=== PATIENT | male | born 1940 | race Caucasian/White ===

== ENCOUNTER → 2016-07-20 | Outpatient (CLI) | payer MEDICARE, OTHER ==
[~2016-07-20] MED LIST: ALPR0.5T PO; ASPI-498 PO; ATOR10TA52 PO; CARV25TA PO; DOC100C PO; ESOM40CA39 PO; FURO40TA PO; IBU100LQ PO; NOR10T PO; POTA10TA51 PO; PRAS10TA6 PO; RANI300T3 PO; SPIR25TA89 PO; TAM04C PO; TRIA0.25 PO; VALS40TA2 PO; VEN75XRT PO
== END | disposition home or self-care (01) ==
LOC: Rad HDHVI 08:00
PROVIDERS: ATTEND Internal Medicine Cardiovascular Disease
DX: I11.0 Hypertensive heart disease with heart failure (principal); I25.10 Atherosclerotic heart disease of native coronary artery without angina pectoris; F41.8 Other specified anxiety disorders; E78.2 Mixed hyperlipidemia; R00.2 Palpitations; R07.89 Other chest pain
CPT/HCPCS: 93306; G0463

== ENCOUNTER → 2016-07-28 | Outpatient (CLI) | payer MEDICARE, OTHER ==
[~2016-07-28] VITALS: Ht 190.5 cm; Wt 104.3 kg
[~2016-07-28] MED LIST changes: +ADENOSINE 87 MG in GIVE UN-DILUTED 0 ML IV ONE; +ADENOSINE 90 MG/30 ML INJ IV ONE; +CYANOCOBALAMIN (B-12) 1000 MCG/1 ML VIAL IM ONE; +CYANOCOBALAMIN (B-12) 1000 MCG/1 ML VIAL ONE; +TESTOSTERONE CYPIONATE 100 MG/0.5ML 10mLMDV HEART CENTER IM ONE; +TESTOSTERONE CYPIONATE 200 MG/ML 1ML VIAL IM ONE
[2016-07-28 15:02] VITALS: BP 116/60
[2016-07-28 16:47] LABS: Calcium 8.5 mg/dL (8.5-10.1); Potassium 3.8 mmol/L (3.5-5.1)
[2016-07-28 16:51] LABS: Albumin 3.8 g/dL (3.4-5.0); BUN/Creatinine Ratio 24.1; Magnesium 2.2 mg/dL (1.6-2.6)
[2016-07-28 16:54] LABS: Bilirubin, Total 0.8 mg/dL (0.2-1.0); Total Protein 7.2 g/dL (6.4-8.2)
[2016-07-28 17:19] LABS: Basophils # (auto) 0 uL; Basophils % (auto) 0.5 % (0.0-2.0); Eosinophils # (auto) 0.2 uL; Eosinophils % (auto) 2.4 % (0.0-7.0); Hematocrit 41.4 % (41.0-53.0); Hemoglobin 13.6 g/dL (13.5-17.5); Lymphocytes # (auto) 1.9 uL; Lymphocytes % (auto) 24.9 % (10.0-50.0); Mean Corpuscular Hemoglobin 32.1 pg (28.0-32.0); Mean Corpuscular Hgb Conc. 32.8 g/dL (32.0-36.0); Mean Corpuscular Volume 97.8 fL (80.0-100.0); Mean Platelet Volume 9.6 fL (7.4-10.4); Monocytes # (auto) 0.5 uL; Monocytes % (auto) 6.3 % (0.0-12.0); Neutrophils # (auto) 5.1 uL; Neutrophils % (auto) 65.9 % (37.0-80.0); Platelet Count (auto) 190 10^3/uL (140-450); Red Cell Distribution Width 13.4 % (11.6-16.0); White Blood Cell 7.7 10^3/uL (4.4-10.8)
== END | disposition home or self-care (01) ==
LOC: Rad HDHVI 08:19
PROVIDERS: ATTEND Internal Medicine Cardiovascular Disease
DX: I10 Essential (primary) hypertension (principal); E11.9 Type 2 diabetes mellitus without complications; E83.40 Disorders of magnesium metabolism, unspecified; D64.9 Anemia, unspecified; E55.9 Vitamin D deficiency, unspecified
CPT/HCPCS: 36415; 78452; 80053; 82306; 83036; 83735; 85025; 93005; 93701; 94620; 96372; 96374; 96375; G0463; J0153

== ENCOUNTER 2016-08-13 11:28 | Emergency (ER) | payer MEDICARE, OTHER ==
[~2016-08-13] VITALS: Ht 190.5 cm; Wt 104.3 kg
[~2016-08-13 11:28] MED LIST changes: -ADENOSINE 87 MG in GIVE UN-DILUTED 0 ML IV ONE; -ADENOSINE 90 MG/30 ML INJ IV ONE; -CYANOCOBALAMIN (B-12) 1000 MCG/1 ML VIAL IM ONE; -CYANOCOBALAMIN (B-12) 1000 MCG/1 ML VIAL ONE; -TESTOSTERONE CYPIONATE 100 MG/0.5ML 10mLMDV HEART CENTER IM ONE; -TESTOSTERONE CYPIONATE 200 MG/ML 1ML VIAL IM ONE
[2016-08-13] MEDS ORDERED: SODIUM CHLORIDE 0.9% 500 ML IVB ONE (11:40)
[2016-08-13 12:27] LABS: Basophils # (auto) 0 uL; Basophils % (auto) 0.2 % (0.0-2.0); Eosinophils # (auto) 0 uL; Eosinophils % (auto) 0.7 % (0.0-7.0); Hemoglobin 12.1 g/dL (13.5-17.5); Lymphocytes % (auto) 20.4 % (10.0-50.0); Mean Corpuscular Hemoglobin 31.5 pg (28.0-32.0); Mean Corpuscular Volume 98.4 fL (80.0-100.0); Mean Platelet Volume 9.1 fL (7.4-10.4); Monocytes # (auto) 0.5 uL; Monocytes % (auto) 10.4 % (0.0-12.0); Neutrophils # (auto) 3.4 uL; Neutrophils % (auto) 68.3 % (37.0-80.0); Platelet Count (auto) 138 10^3/uL (140-450); Red Cell Distribution Width 14.1 % (11.6-16.0)
[2016-08-13 12:38] LABS: INR 1.07 (0.9-1.15); Partial Thromboplastin Time 29.2 sec (22.64-33.71)
[2016-08-13 12:49] LABS: Albumin 3.5 g/dL (3.4-5.0); BUN/Creatinine Ratio 20.2; Bilirubin, Total 0.6 mg/dL (0.2-1.0); Calcium 8.3 mg/dL (8.5-10.1); Potassium 4.2 mmol/L (3.5-5.1); Total Protein 6.6 g/dL (6.4-8.2)
[2016-08-13 13:37] LABS: B-Type Natriuretic Peptide 518.85 pg/mL (0-100); Temperature: 23.1 C (20.0-25.0)
[2016-08-13 13:40] LABS: Urine Bilirubin Negative (Negative); Urine Blood Negative /uL (Negative); Urine Color Yellow (Yellow); Urine Glucose Normal (Normal); Urine Hyaline Cast MANY /lpf (0 - 2); Urine Ketone Negative (Negative); Urine Nitrite Negative (Negative); Urine RBC 1 /hpf (0 - 3); Urine Squamous Epithelial Cell FEW /hpf (<5); Urine Urobilinogen Normal (Negative)
[2016-08-13 14:00] VITALS: BP 108/86
[2016-08-13] MEDS ORDERED: cefTRIAXone 1GM/50ML D5W 50 ML IV ONE (14:15)
== END 2016-08-13 17:05 | disposition home or self-care (01) ==
LOC: ER 11:30
DX: J18.9 Pneumonia, unspecified organism (principal); I25.2 Old myocardial infarction; I25.810 Atherosclerosis of coronary artery bypass graft(s) without angina pectoris; Z87.891 Personal history of nicotine dependence; D64.9 Anemia, unspecified; I11.0 Hypertensive heart disease with heart failure; I50.42 Chronic combined systolic (congestive) and diastolic (congestive) heart failure; Z95.5 Presence of coronary angioplasty implant and graft
CPT/HCPCS: 36415; 71020; 80053; 81001; 83605; 83735; 83880; 84443; 84484; 85025; 85610; 85730; 87040; 93005; 94761; 96361; 96365; 99285; J0696; J7040

== ENCOUNTER → 2016-08-31 | Outpatient (CLI) | payer MEDICARE, OTHER ==
[~2016-08-31] MED LIST changes: +CYANOCOBALAMIN (B-12) 1000 MCG/1 ML VIAL IM ONE; +CYANOCOBALAMIN (B-12) 1000 MCG/1 ML VIAL ONE
[2016-08-31 14:35] VITALS: BP 114/50
[2016-08-31 15:00] VITALS: BP 110/52
== END | disposition home or self-care (01) ==
LOC: CHF HDHVI 14:41
PROVIDERS: ATTEND Internal Medicine Cardiovascular Disease
DX: I10 Essential (primary) hypertension (principal); D64.9 Anemia, unspecified; F20.9 Schizophrenia, unspecified
CPT/HCPCS: 96372; G0463; J3420

== ENCOUNTER → 2016-09-29 | Outpatient (CLI) | payer MEDICARE, OTHER ==
[~2016-09-29] VITALS: Ht 30.5 cm; Wt 0.5 kg
[~2016-09-29] MED LIST changes: +TESTOSTERONE CYPIONATE 100 MG/0.5ML 10mLMDV HEART CENTER IM ONE; +TESTOSTERONE CYPIONATE 200 MG/ML 1ML VIAL IM ONE
[2016-09-29 12:40] VITALS: BP 111/56
[2016-09-29 13:55] VITALS: BP 111/60
== END ==
LOC: CHF HDHVI 12:50
PROVIDERS: ATTEND Internal Medicine Cardiovascular Disease
DX: I11.0 Hypertensive heart disease with heart failure (principal); I50.9 Heart failure, unspecified; I25.10 Atherosclerotic heart disease of native coronary artery without angina pectoris; D64.9 Anemia, unspecified; E11.9 Type 2 diabetes mellitus without complications; Z95.5 Presence of coronary angioplasty implant and graft; Z87.891 Personal history of nicotine dependence; E29.1 Testicular hypofunction
CPT/HCPCS: 93701; 94620; 96372; G0463; J1071; J3420

== ENCOUNTER → 2016-10-05 | Outpatient (CLI) | payer MEDICARE, OTHER ==
[~2016-10-05] MED LIST changes: -CYANOCOBALAMIN (B-12) 1000 MCG/1 ML VIAL IM ONE; -CYANOCOBALAMIN (B-12) 1000 MCG/1 ML VIAL ONE; -TESTOSTERONE CYPIONATE 100 MG/0.5ML 10mLMDV HEART CENTER IM ONE; -TESTOSTERONE CYPIONATE 200 MG/ML 1ML VIAL IM ONE
== END | disposition home or self-care (01) ==
LOC: Rad HDHVI 10:33
PROVIDERS: ATTEND Internal Medicine Cardiovascular Disease
DX: M24.152 Other articular cartilage disorders, left hip (principal); M51.37 Other intervertebral disc degeneration, lumbosacral region
CPT/HCPCS: 72110

== ENCOUNTER → 2016-10-18 | Outpatient (CLI) | payer MEDICARE, OTHER | END | disposition home or self-care (01) | LOC: HDHVI->DVH 08:41 → EDSTATUS 08:41 | PROVIDERS: ATTEND Internal Medicine Cardiovascular Disease | DX: I73.9 Peripheral vascular disease, unspecified (principal); M48.06 Spinal stenosis, lumbar region | CPT/HCPCS: 93926 ==

== ENCOUNTER → 2016-10-25 | Outpatient (CLI) | payer MEDICARE, OTHER ==
[~2016-10-25] MED LIST changes: +CYANOCOBALAMIN (B-12) 1000 MCG/1 ML VIAL IM ONE; +CYANOCOBALAMIN (B-12) 1000 MCG/1 ML VIAL ONE; +TESTOSTERONE CYPIONATE 200 MG/ML 1ML VIAL IM ONE
[2016-10-25 14:10] VITALS: BP 95/53
[2016-10-25 15:15] VITALS: BP 117/61
[2016-10-25 16:29] LABS: BUN/Creatinine Ratio 23.9; Calcium 9.1 mg/dL (8.5-10.1); Magnesium 2.5 mg/dL (1.6-2.6); Potassium 3.9 mmol/L (3.5-5.1)
[2016-10-25 16:30] LABS: Basophils # (auto) 0 uL; Basophils % (auto) 0.4 % (0.0-2.0); Eosinophils # (auto) 0.3 uL; Eosinophils % (auto) 4.4 % (0.0-7.0); Hematocrit 41.3 % (41.0-53.0); Hemoglobin 13.9 g/dL (13.5-17.5); Lymphocytes # (auto) 1.7 uL; Lymphocytes % (auto) 24.4 % (10.0-50.0); Mean Corpuscular Hemoglobin 33.3 pg (28.0-32.0); Mean Corpuscular Hgb Conc. 33.6 g/dL (32.0-36.0); Mean Corpuscular Volume 99.2 fL (80.0-100.0); Mean Platelet Volume 9.6 fL (7.4-10.4); Monocytes # (auto) 0.5 uL; Neutrophils # (auto) 4.5 uL; Neutrophils % (auto) 63.8 % (37.0-80.0); Platelet Count (auto) 191 10^3/uL (140-450); Red Cell Distribution Width 14.6 % (11.6-16.0)
== END | disposition home or self-care (01) ==
LOC: CHF HDHVI 14:12
PROVIDERS: ATTEND Internal Medicine Cardiovascular Disease
DX: D64.9 Anemia, unspecified (principal); I10 Essential (primary) hypertension; E11.9 Type 2 diabetes mellitus without complications; E55.9 Vitamin D deficiency, unspecified; E83.40 Disorders of magnesium metabolism, unspecified
CPT/HCPCS: 36415; 80048; 82306; 83036; 83735; 85025; 96372; G0463; J1071

== ENCOUNTER → 2016-11-21 | Outpatient (CLI) | payer MEDICARE, OTHER ==
[2016-11-21 09:45] VITALS: BP 105/51
[2016-11-21 10:45] VITALS: BP 93/51
== END | disposition home or self-care (01) ==
LOC: Rad HDHVI 09:49
PROVIDERS: ATTEND Internal Medicine Cardiovascular Disease
DX: I50.9 Heart failure, unspecified (principal); I27.2 Other secondary pulmonary hypertension; D64.9 Anemia, unspecified; E29.1 Testicular hypofunction
CPT/HCPCS: 71020; 93701; 96372; G0463; J1071; J3420

== ENCOUNTER → 2016-12-21 | Outpatient (CLI) | payer MEDICARE, OTHER ==
[~2016-12-21] MED LIST changes: -CYANOCOBALAMIN (B-12) 1000 MCG/1 ML VIAL IM ONE; -CYANOCOBALAMIN (B-12) 1000 MCG/1 ML VIAL ONE; -TESTOSTERONE CYPIONATE 200 MG/ML 1ML VIAL IM ONE
[2016-12-21 17:04] LABS: Potassium 4.7 mmol/L (3.5-5.1)
[2016-12-21 18:29] LABS: B-Type Natriuretic Peptide 180.64 pg/mL (0-100)
[2016-12-21 18:30] LABS: Temperature: 24.3 C (20.0-25.0)
== END | disposition home or self-care (01) ==
LOC: Rad HDHVI 12:48
PROVIDERS: ATTEND Internal Medicine Cardiovascular Disease
DX: I11.0 Hypertensive heart disease with heart failure (principal); I50.23 Acute on chronic systolic (congestive) heart failure; I25.5 Ischemic cardiomyopathy
CPT/HCPCS: 36415; 80048; 83880; 93306

== ENCOUNTER → 2016-12-29 | Outpatient (CLI) | payer MEDICARE, OTHER ==
[~2016-12-29] VITALS: Ht 30.5 cm; Wt 0.5 kg
[~2016-12-29] MED LIST changes: +CYANOCOBALAMIN (B-12) 1000 MCG/1 ML VIAL IM ONE; +CYANOCOBALAMIN (B-12) 1000 MCG/1 ML VIAL ONE; +TESTOSTERONE CYPIONATE 200 MG/ML 1ML VIAL IM ONE
[2016-12-29 11:35] VITALS: BP 101/56
[2016-12-29 12:00] VITALS: BP 102/53
== END | disposition home or self-care (01) ==
LOC: CHF HDHVI 11:42
PROVIDERS: ATTEND Internal Medicine Cardiovascular Disease
DX: I50.9 Heart failure, unspecified (principal); D64.9 Anemia, unspecified; E29.1 Testicular hypofunction
CPT/HCPCS: 96372; G0463; J1071; J3420

== ENCOUNTER → 2017-01-27 | Outpatient (CLI) | payer MEDICARE, OTHER ==
[2017-01-27 11:40] VITALS: BP 107/61
[2017-01-27 12:40] LABS: Basophils # (auto) 0 uL; Basophils % (auto) 0.5 % (0.0-2.0); CONDITION Y; Eosinophils # (auto) 0.2 uL; Eosinophils % (auto) 3.1 % (0.0-7.0); Hematocrit 40.4 % (41.0-53.0); Hemoglobin 13.7 g/dL (13.5-17.5); Lymphocytes # (auto) 1.2 uL; Mean Corpuscular Hemoglobin 33.6 pg (28.0-32.0); Mean Corpuscular Hgb Conc. 33.8 g/dL (32.0-36.0); Mean Corpuscular Volume 99.3 fL (80.0-100.0); Mean Platelet Volume 9.9 fL (7.4-10.4); Monocytes # (auto) 0.3 uL; Monocytes % (auto) 6.1 % (0.0-12.0); Neutrophils # (auto) 3.6 uL; Neutrophils % (auto) 67.3 % (37.0-80.0); Platelet Count (auto) 182 10^3/uL (140-450); White Blood Cell 5.3 10^3/uL (4.4-10.8)
[2017-01-27 13:09] LABS: BUN/Creatinine Ratio 22.3; Calcium 8.9 mg/dL (8.5-10.1); Magnesium 2.3 mg/dL (1.6-2.6); Potassium 4.5 mmol/L (3.5-5.1)
== END | disposition home or self-care (01) ==
LOC: CHF HDHVI 10:47
PROVIDERS: ATTEND Internal Medicine Cardiovascular Disease
DX: I11.0 Hypertensive heart disease with heart failure (principal); I50.9 Heart failure, unspecified; E83.42 Hypomagnesemia; R53.81 Other malaise; R94.2 Abnormal results of pulmonary function studies; E55.9 Vitamin D deficiency, unspecified; D64.9 Anemia, unspecified; Z95.5 Presence of coronary angioplasty implant and graft
CPT/HCPCS: 36415; 80048; 82306; 83735; 84403; 85025; 93701; 94620; 96372; G0463; J1071; J3420

== ENCOUNTER → 2017-02-10 | Outpatient (CLI) | payer MEDICARE, OTHER ==
[~2017-02-10] MED LIST changes: +BUMETANIDE (0.25MG/ML) 4 ML VIAL IV ONE; +BUMETANIDE (0.25MG/ML) 4 ML VIAL ONE; +METOLAZONE 5 MG TAB ONE; +METOLAZONE 5 MG TAB PO ONE; +POTASSIUM CHL 20 Meq TABLET PO ONE
[2017-02-10 11:30] VITALS: BP 107/52
[2017-02-10 17:01] LABS: Basophils # (auto) 0 uL; Basophils % (auto) 0.5 % (0.0-2.0); CONDITION Y; Eosinophils # (auto) 0.1 uL; Eosinophils % (auto) 1.4 % (0.0-7.0); Hematocrit 40.3 % (41.0-53.0); Hemoglobin 13.8 g/dL (13.5-17.5); Lymphocytes % (auto) 14.5 % (10.0-50.0); Mean Corpuscular Hemoglobin 33.9 pg (28.0-32.0); Mean Corpuscular Hgb Conc. 34.1 g/dL (32.0-36.0); Mean Corpuscular Volume 99.3 fL (80.0-100.0); Monocytes # (auto) 0.4 uL; Monocytes % (auto) 6.4 % (0.0-12.0); Neutrophils # (auto) 5.3 uL; Neutrophils % (auto) 77.2 % (37.0-80.0); Platelet Count (auto) 178 10^3/uL (140-450); Red Cell Distribution Width 14.6 % (11.6-16.0); White Blood Cell 6.9 10^3/uL (4.4-10.8)
[2017-02-10 17:12] LABS: Calcium 8.9 mg/dL (8.5-10.1); Potassium 4.7 mmol/L (3.5-5.1)
[2017-02-10 17:22] LABS: BUN/Creatinine Ratio 21.8
== END | disposition home or self-care (01) ==
LOC: CHF HDHVI 10:14
PROVIDERS: ATTEND Internal Medicine Cardiovascular Disease
DX: I11.0 Hypertensive heart disease with heart failure (principal); I50.9 Heart failure, unspecified; E11.9 Type 2 diabetes mellitus without complications; D64.9 Anemia, unspecified; E29.1 Testicular hypofunction
CPT/HCPCS: 36415; 80048; 82565; 83036; 85025; 96374; G0463; J1071; J3420

== ENCOUNTER → 2017-03-01 | Outpatient (CLI) | payer MEDICARE, OTHER ==
[~2017-03-01] MED LIST changes: -BUMETANIDE (0.25MG/ML) 4 ML VIAL IV ONE; -BUMETANIDE (0.25MG/ML) 4 ML VIAL ONE; -METOLAZONE 5 MG TAB ONE; -METOLAZONE 5 MG TAB PO ONE; -POTASSIUM CHL 20 Meq TABLET PO ONE
[2017-03-01 10:20] VITALS: BP 97/51
[2017-03-01 11:20] VITALS: BP 100/50
== END | disposition home or self-care (01) ==
LOC: CHF HDHVI 10:31
PROVIDERS: ATTEND Internal Medicine Cardiovascular Disease
DX: I50.9 Heart failure, unspecified (principal); E29.1 Testicular hypofunction
CPT/HCPCS: 93701; 96372; G0463; J1071; J3420

== ENCOUNTER → 2017-03-08 | Outpatient (CLI) | payer MEDICARE, OTHER ==
[~2017-03-08] MED LIST changes: -CYANOCOBALAMIN (B-12) 1000 MCG/1 ML VIAL IM ONE; -CYANOCOBALAMIN (B-12) 1000 MCG/1 ML VIAL ONE; -TESTOSTERONE CYPIONATE 200 MG/ML 1ML VIAL IM ONE
[2017-03-08 16:22] LABS: Basophils # (auto) 0 uL; Basophils % (auto) 0.5 % (0.0-2.0); CONDITION Y; Eosinophils # (auto) 0.1 uL; Eosinophils % (auto) 1.9 % (0.0-7.0); Hematocrit 40.3 % (41.0-53.0); Hemoglobin 13.4 g/dL (13.5-17.5); Lymphocytes # (auto) 1.4 uL; Lymphocytes % (auto) 20.3 % (10.0-50.0); Mean Corpuscular Hemoglobin 33.1 pg (28.0-32.0); Mean Corpuscular Hgb Conc. 33.3 g/dL (32.0-36.0); Mean Corpuscular Volume 99.5 fL (80.0-100.0); Mean Platelet Volume 9.8 fL (7.4-10.4); Monocytes # (auto) 0.5 uL; Monocytes % (auto) 7.3 % (0.0-12.0); Neutrophils # (auto) 4.7 uL; Platelet Count (auto) 186 10^3/uL (140-450); Red Cell Distribution Width 14.4 % (11.6-16.0); White Blood Cell 6.8 10^3/uL (4.4-10.8)
[2017-03-08 16:31] LABS: BUN/Creatinine Ratio 20.8; Calcium 8.7 mg/dL (8.5-10.1); Potassium 4.6 mmol/L (3.5-5.1)
[2017-03-08 16:47] LABS: B-Type Natriuretic Peptide 228.75 pg/mL (0-100)
[2017-03-08 17:04] LABS: Temperature: 22.2 C (20.0-25.0)
== END | disposition home or self-care (01) ==
LOC: LAB 14:37 → CHF HDHVI 14:37
PROVIDERS: ATTEND Internal Medicine Cardiovascular Disease
DX: I11.0 Hypertensive heart disease with heart failure (principal); I50.9 Heart failure, unspecified; D64.9 Anemia, unspecified
CPT/HCPCS: 36415; 80048; 83880; 85025

== ENCOUNTER → 2017-03-10 | Outpatient (CLI) | payer MEDICARE, OTHER ==
[~2017-03-10] MED LIST changes: +FUROSEMIDE 40 MG/4 ML VIAL IV ONE; +FUROSEMIDE 40 MG/4 ML VIAL ONE; +POTASSIUM CHL 20 Meq TABLET PO ONE
[2017-03-10 11:03] VITALS: BP 96/56
[2017-03-10 11:10] VITALS: BP 93/50
== END | disposition home or self-care (01) ==
LOC: CHF HDHVI 09:58
PROVIDERS: ATTEND Internal Medicine Cardiovascular Disease
DX: I25.10 Atherosclerotic heart disease of native coronary artery without angina pectoris (principal); I11.0 Hypertensive heart disease with heart failure; I50.9 Heart failure, unspecified
CPT/HCPCS: G0463; J1940

== ENCOUNTER → 2017-03-15 | Outpatient (CLI) | payer MEDICARE, OTHER ==
[~2017-03-15] MED LIST changes: -FUROSEMIDE 40 MG/4 ML VIAL IV ONE; -FUROSEMIDE 40 MG/4 ML VIAL ONE; +MAGNESIUM CITRATE SOLUTION 300 ML BTL ONE; +MAGNESIUM CITRATE SOLUTION 300 ML BTL PO ONE; -POTASSIUM CHL 20 Meq TABLET PO ONE
[2017-03-15 10:00] VITALS: BP 100/50
[2017-03-15 12:00] VITALS: BP 90/50
== END | disposition home or self-care (01) ==
LOC: CHF HDHVI 09:57
PROVIDERS: ATTEND Internal Medicine Cardiovascular Disease
DX: K21.9 Gastro-esophageal reflux disease without esophagitis (principal); I11.0 Hypertensive heart disease with heart failure; I50.9 Heart failure, unspecified; I25.10 Atherosclerotic heart disease of native coronary artery without angina pectoris; G89.29 Other chronic pain; E87.70 Fluid overload, unspecified; F41.9 Anxiety disorder, unspecified
CPT/HCPCS: G0463

== ENCOUNTER → 2017-03-21 | Outpatient (CLI) | payer MEDICARE, OTHER ==
[~2017-03-21] MED LIST changes: +IVAB1.7T PO; -MAGNESIUM CITRATE SOLUTION 300 ML BTL ONE; -MAGNESIUM CITRATE SOLUTION 300 ML BTL PO ONE; +METHPOW PO; +SACU1TAB PO
[2017-03-21 11:00] VITALS: BP_SYST 96; BP_SYST 98; BP_DIAS 53; BP_DIAS 63
[2017-03-21 11:30] VITALS: BP_SYST 83; BP_SYST 85; BP_DIAS 46; BP_DIAS 47
[2017-03-21 16:20] LABS: BUN/Creatinine Ratio 24.4; Calcium 8.9 mg/dL (8.5-10.1); Potassium 4.9 mmol/L (3.5-5.1)
[2017-03-21 16:23] LABS: Basophils # (auto) 0 uL; Basophils % (auto) 0.7 % (0.0-2.0); Eosinophils # (auto) 0.1 uL; Eosinophils % (auto) 1.8 % (0.0-7.0); Hematocrit 35.7 % (41.0-53.0); Hemoglobin 11.9 g/dL (13.5-17.5); Lymphocytes # (auto) 0.9 uL; Lymphocytes % (auto) 14.4 % (10.0-50.0); Mean Corpuscular Hemoglobin 33.7 pg (28.0-32.0); Mean Corpuscular Hgb Conc. 33.5 g/dL (32.0-36.0); Mean Corpuscular Volume 100.6 fL (80.0-100.0); Mean Platelet Volume 8.7 fL (6.9-10.8); Monocytes # (auto) 0.6 uL; Monocytes % (auto) 9.2 % (0.0-12.0); Neutrophils # (auto) 4.5 uL; Neutrophils % (auto) 73.9 % (37.0-80.0); Nucleated Red Blood Cells % 0.3 %; Platelet Count (auto) 158 10^3/uL (140-450); Red Cell Distribution Width 14.9 % (11.8-14.3); White Blood Cell 6.1 10^3/uL (4.4-10.8)
[2017-03-21 16:43] LABS: INR 1.47 (0.9-1.15); Partial Thromboplastin Time 40.3 sec (22.64-33.71); Prothrombin Time 16.1 sec (9.37-12.3)
== END | disposition home or self-care (01) ==
LOC: Rad HDHVI 11:09
PROVIDERS: ATTEND Internal Medicine Cardiovascular Disease
DX: Z01.818 Encounter for other preprocedural examination (principal); I10 Essential (primary) hypertension; D64.9 Anemia, unspecified; R79.1 Abnormal coagulation profile; J90 Pleural effusion, not elsewhere classified; I51.7 Cardiomegaly; J98.11 Atelectasis; I70.0 Atherosclerosis of aorta
CPT/HCPCS: 36415; 71020; 80048; 85025; 85610; 85730; 93005; G0463

== ENCOUNTER 2017-03-27 06:58 | Day surgery (SDC) | payer MEDICARE, OTHER ==
[~2017-03-27] VITALS: Ht 190.5 cm; Wt 104.3 kg
[~2017-03-27 06:58] MED LIST changes: -CARV25TA PO; -PRAS10TA6 PO; -VALS40TA2 PO
[2017-03-27] MEDS ORDERED: FLUMAZENIL 0.1 MG/ML INJ 10ML MDV IV ONE (08:15)
[2017-03-27] MEDS ORDERED: NALOXONE HCL 0.4 MG/ML VIAL IV ONE (08:15)
[2017-03-27] MEDS ORDERED: MIDAZOLAM HCL 1MG/1ML-2 ML VIAL IV ONE (08:15)
[2017-03-27] MEDS ORDERED: fentaNYL CITRATE 100 MCG/2 ML VL IM ONE (08:15)
[2017-03-27] MEDS ORDERED: AMIODARONE HCL 200 MG TAB PO ONE (09:30)
[2017-03-27] MEDS ORDERED: AMIO200T33 PO (11:55)
[2017-05-09] MEDS ORDERED: CLOP75TA28 PO (12:01)
[2017-05-09] MEDS ORDERED: ASCO500T11 PO (12:01)
[2017-05-09] MEDS ORDERED: MULT-928 PO (12:01)
== END 2017-03-27 12:20 | disposition home or self-care (01) ==
LOC: CATH 06:58
PROVIDERS: ATTEND Internal Medicine Cardiovascular Disease
DX: I48.91 Unspecified atrial fibrillation (principal); I25.10 Atherosclerotic heart disease of native coronary artery without angina pectoris; Z95.0 Presence of cardiac pacemaker; Z95.5 Presence of coronary angioplasty implant and graft; Z88.8 Allergy status to other drugs, medicaments and biological substances; I50.9 Heart failure, unspecified; Z95.1 Presence of aortocoronary bypass graft
CPT/HCPCS: 92960; J2250; J3010; J7030; 99152; 99153

== ENCOUNTER → 2017-03-30 | Outpatient (CLI) | payer MEDICARE, OTHER ==
[~2017-03-30] VITALS: Ht 165.1 cm; Wt 103.4 kg
[~2017-03-30] MED LIST changes: +AMIO200T33 PO; +CYANOCOBALAMIN (B-12) 1000 MCG/1 ML VIAL IM ONE; +CYANOCOBALAMIN (B-12) 1000 MCG/1 ML VIAL ONE; +MVI in SODIUM CHLORIDE 0.9% 1,010 ML ONE; +MVI in SODIUM CHLORIDE 0.9% 500 ML IVB ONE; +TESTOSTERONE CYPIONATE 200 MG/ML 1ML VIAL IM ONE
[2017-03-30 12:30] VITALS: BP 99/54
== END | disposition home or self-care (01) ==
LOC: CHF HDHVI 09:29
PROVIDERS: ATTEND Internal Medicine Cardiovascular Disease
DX: I50.9 Heart failure, unspecified (principal); I10 Essential (primary) hypertension; K21.9 Gastro-esophageal reflux disease without esophagitis; N40.0 Benign prostatic hyperplasia without lower urinary tract symptoms
CPT/HCPCS: 96365; 96366; 96372; G0463; J1071; J3411; J3420; J3475

== ENCOUNTER → 2017-04-11 | Outpatient (CLI) | payer MEDICARE, OTHER ==
[~2017-04-11] MED LIST changes: -CYANOCOBALAMIN (B-12) 1000 MCG/1 ML VIAL IM ONE; -CYANOCOBALAMIN (B-12) 1000 MCG/1 ML VIAL ONE; -MVI in SODIUM CHLORIDE 0.9% 1,010 ML ONE; -MVI in SODIUM CHLORIDE 0.9% 500 ML IVB ONE; -TESTOSTERONE CYPIONATE 200 MG/ML 1ML VIAL IM ONE
[2017-04-11 15:37] VITALS: BP 103/50
== END | disposition home or self-care (01) ==
LOC: CHF HDHVI 12:41
PROVIDERS: ATTEND Internal Medicine Cardiovascular Disease
DX: I48.0 Paroxysmal atrial fibrillation (principal); J84.10 Pulmonary fibrosis, unspecified
CPT/HCPCS: 93306; G0463

== ENCOUNTER → 2017-04-17 | Outpatient (CLI) | payer MEDICARE, OTHER ==
[~2017-04-17] MED LIST changes: +CYANOCOBALAMIN (B-12) 1000 MCG/1 ML VIAL IM ONE; +CYANOCOBALAMIN (B-12) 1000 MCG/1 ML VIAL ONE; +FUROSEMIDE 40 MG/4 ML VIAL IV ONE; +FUROSEMIDE 40 MG/4 ML VIAL ONE
[2017-04-17 12:15] VITALS: BP 91/42
[2017-04-17 17:09] LABS: BUN/Creatinine Ratio 24.3; Calcium 9.1 mg/dL (8.5-10.1); Magnesium 2.4 mg/dL (1.6-2.6); Potassium 4.8 mmol/L (3.5-5.1)
[2017-04-17 17:12] LABS: Basophils # (auto) 0 uL; Basophils % (auto) 0.7 % (0.0-2.0); Eosinophils # (auto) 0 uL; Eosinophils % (auto) 0.6 % (0.0-7.0); Hematocrit 33.3 % (41.0-53.0); Hemoglobin 10.9 g/dL (13.5-17.5); Lymphocytes # (auto) 0.8 uL; Lymphocytes % (auto) 12.8 % (10.0-50.0); Mean Corpuscular Hgb Conc. 32.7 g/dL (32.0-36.0); Mean Corpuscular Volume 97.8 fL (80.0-100.0); Mean Platelet Volume 8.3 fL (6.9-10.8); Monocytes # (auto) 0.4 uL; Monocytes % (auto) 7.1 % (0.0-12.0); Neutrophils % (auto) 78.8 % (37.0-80.0); Nucleated Red Blood Cells % 0.5 %; Platelet Count (auto) 215 10^3/uL (140-450); Red Cell Distribution Width 15.4 % (11.8-14.3); White Blood Cell 6.3 10^3/uL (4.4-10.8)
== END | disposition home or self-care (01) ==
LOC: CHF HDHVI 09:39
PROVIDERS: ATTEND Internal Medicine Cardiovascular Disease
DX: I10 Essential (primary) hypertension (principal); E83.42 Hypomagnesemia; D51.9 Vitamin B12 deficiency anemia, unspecified; D64.9 Anemia, unspecified
CPT/HCPCS: 36415; 80048; 82607; 83540; 83550; 83735; 85025; G0463; J1940; J3420

== ENCOUNTER → 2017-04-25 | Outpatient (CLI) | payer MEDICARE, OTHER ==
[~2017-04-25] MED LIST changes: -CYANOCOBALAMIN (B-12) 1000 MCG/1 ML VIAL IM ONE; -CYANOCOBALAMIN (B-12) 1000 MCG/1 ML VIAL ONE; -FUROSEMIDE 40 MG/4 ML VIAL IV ONE; -FUROSEMIDE 40 MG/4 ML VIAL ONE
[2017-04-25 13:20] VITALS: BP 97/49
[2017-04-25 14:00] VITALS: BP 97/50
== END | disposition home or self-care (01) ==
LOC: CHF HDHVI 13:19
PROVIDERS: ATTEND Internal Medicine Cardiovascular Disease
DX: I50.9 Heart failure, unspecified (principal); I25.10 Atherosclerotic heart disease of native coronary artery without angina pectoris; K21.9 Gastro-esophageal reflux disease without esophagitis; M10.9 Gout, unspecified; F41.9 Anxiety disorder, unspecified; E87.70 Fluid overload, unspecified
CPT/HCPCS: G0463

== ENCOUNTER → 2017-05-01 | Outpatient (CLI) | payer MEDICARE, OTHER ==
[~2017-05-01] MED LIST changes: +TESTOSTERONE CYPIONATE 200 MG/ML 1ML VIAL IM ONE
[2017-05-01 15:45] VITALS: BP 111/53
== END | disposition home or self-care (01) ==
LOC: CHF HDHVI 14:50
PROVIDERS: ATTEND Internal Medicine Cardiovascular Disease
DX: I11.0 Hypertensive heart disease with heart failure (principal); I50.9 Heart failure, unspecified; I25.10 Atherosclerotic heart disease of native coronary artery without angina pectoris; E29.1 Testicular hypofunction; E78.4 Other hyperlipidemia; R53.81 Other malaise
CPT/HCPCS: 36415; 84403; 96372; G0463; J1071

== ENCOUNTER → 2017-05-09 | Outpatient (CLI) | payer MEDICARE, OTHER ==
[~2017-05-09] MED LIST changes: +ASCO500T11 PO; +CLOP75TA28 PO; +IOHEXOL 350 MG/ML 100ML IJ ONE; +MULT-928 PO; -TESTOSTERONE CYPIONATE 200 MG/ML 1ML VIAL IM ONE
[2017-05-09 09:05] VITALS: BP 101/53
[2017-05-09 09:35] VITALS: BP 99/52
[2017-05-09 13:05] LABS: Basophils # (auto) 0 uL; Basophils % (auto) 0.9 % (0.0-2.0); Eosinophils # (auto) 0 uL; Eosinophils % (auto) 0.6 % (0.0-7.0); Hematocrit 34.5 % (41.0-53.0); Hemoglobin 11.4 g/dL (13.5-17.5); Lymphocytes # (auto) 1.2 uL; Mean Corpuscular Hemoglobin 31.4 pg (28.0-32.0); Mean Corpuscular Volume 95.3 fL (80.0-100.0); Mean Platelet Volume 8.9 fL (6.9-10.8); Monocytes # (auto) 0.5 uL; Monocytes % (auto) 9.2 % (0.0-12.0); Neutrophils # (auto) 3.6 uL; Neutrophils % (auto) 67.3 % (37.0-80.0); Nucleated Red Blood Cells % 0.2 %; Platelet Count (auto) 162 10^3/uL (140-450); Red Cell Distribution Width 16.2 % (11.8-14.3); White Blood Cell 5.3 10^3/uL (4.4-10.8)
[2017-05-09 13:13] LABS: INR 0.99 (0.9-1.15); Partial Thromboplastin Time 26.7 sec (22.64-33.71); Prothrombin Time 10.8 sec (9.37-12.3)
[2017-05-09 13:30] LABS: Calcium 9.3 mg/dL (8.5-10.1); Potassium 4.3 mmol/L (3.5-5.1)
== END | disposition home or self-care (01) ==
LOC: Rad HDHVI 09:03
PROVIDERS: ATTEND Internal Medicine Cardiovascular Disease
DX: I10 Essential (primary) hypertension (principal); D64.9 Anemia, unspecified; R79.1 Abnormal coagulation profile; Z01.812 Encounter for preprocedural laboratory examination
CPT/HCPCS: 36415; 71020; 80048; 85025; 85610; 85730; 93005; G0463

== ENCOUNTER 2017-05-11 08:53 | Inpatient (IN) | payer MEDICARE, OTHER ==
[~2017-05-11] VITALS: Ht 190.5 cm; Wt 101.4 kg
[~2017-05-11 08:53] MED LIST changes: -AMIO200T33 PO; -IOHEXOL 350 MG/ML 100ML IJ ONE
[2017-05-11] MEDS ORDERED: ceFAZolin 1GM/50ML 50 ML IV ONE (09:30)
[2017-05-11] MEDS ORDERED: VANCOMYCIN HCL 1000 MG VL IR ONE (09:30)
[2017-05-11] MEDS ORDERED: VANCOMYCIN 1GM/250ML 250 ML IV ONE (09:30)
[2017-05-11] MEDS ORDERED: LIDOCAINE 2%HCL (LOCAL ANESTH.) INJ 20ML MDV ONE (10:42)
[2017-05-11] MEDS ORDERED: fentaNYL CITRATE 100 MCG/2 ML VL ONE (10:53)
[2017-05-11] MEDS ORDERED: MIDAZOLAM HCL 1MG/1ML-2 ML VIAL ONE (10:53)
[2017-05-11] MEDS ORDERED: FUROSEMIDE 20 MG/2 ML VIAL ONE (11:35)
[2017-05-11] MEDS ORDERED: NITROGLYCERIN 0.4 MG SL TAB SL PRN (12:45)
[2017-05-11] MEDS ORDERED: MORPHINE SULFATE 10 MG/ML INJ 1ML SDV IV PRN (12:45)
[2017-05-11] MEDS ORDERED: ONDANSETRON HCL 4 MG/2 ML VIAL IV PRN (12:45)
[2017-05-11] MEDS ORDERED: ACETAMINOPHEN 325 MG TAB PO PRN (12:45)
[2017-05-11] MEDS ORDERED: HYDROcodone-ACET 5/325MG TAB PO PRN (12:45)
[2017-05-11] MEDS ORDERED: LORazepam 0.5 MG TAB PO PRN (12:45)
[2017-05-11 16:30] VITALS: BP 96/48
[2017-05-11] MEDS: VANCOMYCIN 1GM/250ML 250 ML IV SCH ×2 (21:28→22:03)
[2017-05-11 22:00] VITALS: BP 99/53
[2017-05-12 05:00] VITALS: BP 104/62
[2017-05-12] MEDS: VANCOMYCIN 1GM/250ML 250 ML IV SCH (10:01)
[2017-05-12 11:26] VITALS: BP 111/56
== END 2017-05-12 12:40 | disposition home or self-care (01) | DRG 226 ==
LOC: CATH 08:53 → TELE-WESTW 08:54
PROVIDERS: ADMIT Internal Medicine Cardiovascular Disease; ATTEND Internal Medicine Cardiovascular Disease
PROC: 0JH609Z Insertion of Cardiac Resynchronization Defibrillator Pulse Generator into Chest Subcutaneous Tissue and Fascia, Open Approach (ICD-10-PCS; principal; 2017-05-11)
PROC: 02HL3KZ Insertion of Defibrillator Lead into Left Ventricle, Percutaneous Approach (ICD-10-PCS; 2017-05-11)
PROC: 0JPT0PZ Removal of Cardiac Rhythm Related Device from Trunk Subcutaneous Tissue and Fascia, Open Approach (ICD-10-PCS; 2017-05-11)
DX: I25.5 Ischemic cardiomyopathy (principal); I50.23 Acute on chronic systolic (congestive) heart failure; I48.91 Unspecified atrial fibrillation; Z87.891 Personal history of nicotine dependence; I25.2 Old myocardial infarction; Z88.8 Allergy status to other drugs, medicaments and biological substances
CPT/HCPCS: 36415; 71010; 71020; 80048; 85025; 85610; 85730; 93005; 99152; 99153; G0463; J0690; J2250

== ENCOUNTER → 2017-05-17 | Outpatient (CLI) | payer MEDICARE, OTHER ==
[~2017-05-17] VITALS: Ht 30.5 cm; Wt 0.5 kg
[~2017-05-17] MED LIST changes: +CYANOCOBALAMIN (B-12) 1000 MCG/1 ML VIAL IM ONE; +CYANOCOBALAMIN (B-12) 1000 MCG/1 ML VIAL ONE
[2017-05-17 09:00] VITALS: BP 97/49
[2017-05-17 10:30] VITALS: BP 106/56
== END | disposition home or self-care (01) ==
LOC: CHF HDHVI 09:06
PROVIDERS: ATTEND Internal Medicine Cardiovascular Disease
DX: I50.9 Heart failure, unspecified (principal); I25.10 Atherosclerotic heart disease of native coronary artery without angina pectoris; D64.9 Anemia, unspecified; M85.9 Disorder of bone density and structure, unspecified
CPT/HCPCS: 77078; G0463; J3420

== ENCOUNTER → 2017-05-31 | Outpatient (CLI) | payer MEDICARE, OTHER ==
[~2017-05-31] VITALS: Ht 30.5 cm; Wt 99.5 kg
[~2017-05-31] MED LIST changes: -CYANOCOBALAMIN (B-12) 1000 MCG/1 ML VIAL IM ONE; -CYANOCOBALAMIN (B-12) 1000 MCG/1 ML VIAL ONE; +FUROSEMIDE 20 MG/2 ML VIAL ONE; +TESTOSTERONE CYPIONATE 200 MG/ML 1ML VIAL IM ONE
[2017-05-31 10:05] VITALS: BP 101/48
== END | disposition home or self-care (01) ==
LOC: CHF HDHVI 09:45
PROVIDERS: ATTEND Internal Medicine Cardiovascular Disease
DX: I50.9 Heart failure, unspecified (principal); E29.1 Testicular hypofunction; I27.21 Secondary pulmonary arterial hypertension
CPT/HCPCS: 96372; G0463; J1071

== ENCOUNTER → 2017-06-27 | Outpatient (CLI) | payer MEDICARE, OTHER ==
[~2017-06-27] MED LIST changes: +CYANOCOBALAMIN (B-12) 1000 MCG/1 ML VIAL IM ONE; +CYANOCOBALAMIN (B-12) 1000 MCG/1 ML VIAL ONE; -FUROSEMIDE 20 MG/2 ML VIAL ONE
[2017-06-27 10:40] VITALS: BP 101/53
[2017-06-27 11:40] VITALS: BP 101/53
[2017-06-27 12:14] LABS: Basophils # (auto) 0 uL; Basophils % (auto) 0.7 % (0.0-2.0); Eosinophils # (auto) 0.1 uL; Eosinophils % (auto) 1.6 % (0.0-7.0); Hemoglobin 12.4 g/dL (13.5-17.5); Lymphocytes # (auto) 1.5 uL; Lymphocytes % (auto) 23.6 % (10.0-50.0); Mean Corpuscular Hemoglobin 29.5 pg (28.0-32.0); Mean Corpuscular Hgb Conc. 32.7 g/dL (32.0-36.0); Mean Corpuscular Volume 90.1 fL (80.0-100.0); Mean Platelet Volume 8.7 fL (6.9-10.8); Monocytes # (auto) 0.4 uL; Monocytes % (auto) 6.3 % (0.0-12.0); Neutrophils # (auto) 4.2 uL; Neutrophils % (auto) 67.8 % (37.0-80.0); Platelet Count (auto) 178 10^3/uL (140-450); Red Cell Distribution Width 17.7 % (11.8-14.3); White Blood Cell 6.3 10^3/uL (4.4-10.8)
[2017-06-27 12:23] LABS: BUN/Creatinine Ratio 25.2; Magnesium 2.6 mg/dL (1.6-2.6); Potassium 4.9 mmol/L (3.5-5.1)
== END | disposition home or self-care (01) ==
LOC: CHF HDHVI 10:47
PROVIDERS: ATTEND Internal Medicine Cardiovascular Disease
DX: I11.0 Hypertensive heart disease with heart failure (principal); I50.9 Heart failure, unspecified; D64.9 Anemia, unspecified; R53.83 Other fatigue; E29.1 Testicular hypofunction; I48.91 Unspecified atrial fibrillation
CPT/HCPCS: 36415; 80048; 83735; 85025; 96372; G0463; J1071; J3420

== ENCOUNTER → 2017-07-28 | Outpatient (CLI) | payer MEDICARE, OTHER ==
[~2017-07-28] VITALS: Ht 30.5 cm; Wt 97.7 kg
[~2017-07-28] MED LIST changes: -IBU100LQ PO; +IBUP100S11 PO
[2017-07-28 10:50] VITALS: BP 92/49
[2017-07-28 12:30] VITALS: BP 106/51
[2017-07-28 16:36] LABS: BUN/Creatinine Ratio 25.2; Calcium 9.2 mg/dL (8.5-10.1); Potassium 4.7 mmol/L (3.5-5.1)
== END | disposition home or self-care (01) ==
LOC: CHF HDHVI 10:46
PROVIDERS: ATTEND Internal Medicine Cardiovascular Disease
DX: D51.9 Vitamin B12 deficiency anemia, unspecified (principal); I10 Essential (primary) hypertension; E29.1 Testicular hypofunction; D64.9 Anemia, unspecified; I27.21 Secondary pulmonary arterial hypertension
CPT/HCPCS: 36415; 80048; 82607; 84403; 93701; 96372; G0463; J1071; J3420

== ENCOUNTER → 2017-08-08 | Outpatient (CLI) | payer MEDICARE, OTHER ==
[~2017-08-08] MED LIST changes: -CYANOCOBALAMIN (B-12) 1000 MCG/1 ML VIAL IM ONE; -CYANOCOBALAMIN (B-12) 1000 MCG/1 ML VIAL ONE; +MAGNESIUM SULFATE 1GM/100ML 100 ML IV ONE; +MVI in SODIUM CHLORIDE 0.9% 1,010 ML ONE; +MVI in SODIUM CHLORIDE 0.9% 500 ML IVB ONE; -TESTOSTERONE CYPIONATE 200 MG/ML 1ML VIAL IM ONE
[2017-08-08 15:00] VITALS: BP 117/57
== END ==
LOC: CHF HDHVI 11:02
PROVIDERS: ATTEND Internal Medicine Cardiovascular Disease
DX: I48.91 Unspecified atrial fibrillation (principal); R06.02 Shortness of breath; R00.0 Tachycardia, unspecified; G47.00 Insomnia, unspecified; E86.0 Dehydration
CPT/HCPCS: 71046; 96365; 96366; 96368; G0463; J3411; J3475; 96367

== ENCOUNTER → 2017-08-29 | Outpatient (CLI) | payer MEDICARE, OTHER ==
[~2017-08-29] MED LIST changes: +CYANOCOBALAMIN (B-12) 1000 MCG/1 ML VIAL IM ONE; +CYANOCOBALAMIN (B-12) 1000 MCG/1 ML VIAL ONE; -MAGNESIUM SULFATE 1GM/100ML 100 ML IV ONE; -MVI in SODIUM CHLORIDE 0.9% 1,010 ML ONE; -MVI in SODIUM CHLORIDE 0.9% 500 ML IVB ONE; +TESTOSTERONE CYPIONATE 200 MG/ML 1ML VIAL IM ONE
[2017-08-29 14:55] VITALS: BP 92/50
== END | disposition home or self-care (01) ==
LOC: CHF HDHVI 14:20
PROVIDERS: ATTEND Internal Medicine Cardiovascular Disease
DX: I50.9 Heart failure, unspecified (principal); I25.10 Atherosclerotic heart disease of native coronary artery without angina pectoris; I48.91 Unspecified atrial fibrillation; E29.1 Testicular hypofunction; D64.9 Anemia, unspecified; R53.81 Other malaise; R53.83 Other fatigue
CPT/HCPCS: 93701; 96372; G0463; J1071; J3420

== ENCOUNTER → 2017-09-26 | Outpatient (CLI) | payer MEDICARE, OTHER ==
[2017-09-26 11:10] VITALS: BP 103/55
[2017-09-26 12:00] VITALS: BP 93/51
[2017-09-26 16:09] LABS: Albumin 3.3 g/dL (3.4-5.0); BUN/Creatinine Ratio 19.6; Calcium 8.7 mg/dL (8.5-10.1); Magnesium 2.3 mg/dL (1.6-2.6); Potassium 4.7 mmol/L (3.5-5.1)
[2017-09-26 16:13] LABS: Bilirubin, Total 0.6 mg/dL (0.2-1.0); Total Protein 6.6 g/dL (6.4-8.2)
[2017-09-26 16:49] LABS: Basophils # (auto) 0.1 uL; Basophils % (auto) 1.2 % (0.0-2.0); Eosinophils # (auto) 0.1 uL; Eosinophils % (auto) 1.7 % (0.0-7.0); Hematocrit 35.8 % (41.0-53.0); Hemoglobin 11.9 g/dL (13.5-17.5); Lymphocytes # (auto) 1.2 uL; Lymphocytes % (auto) 22.1 % (10.0-50.0); Mean Corpuscular Hemoglobin 30.7 pg (28.0-32.0); Mean Corpuscular Hgb Conc. 33.1 g/dL (32.0-36.0); Mean Corpuscular Volume 92.9 fL (80.0-100.0); Monocytes # (auto) 0.4 uL; Monocytes % (auto) 6.7 % (0.0-12.0); Neutrophils # (auto) 3.7 uL; Neutrophils % (auto) 68.3 % (37.0-80.0); Nucleated Red Blood Cells % 0.8 %; Platelet Count (auto) 180 10^3/uL (140-450); Red Blood Cells 3.86 10^6/uL (4.5-5.90); Red Cell Distribution Width 17.1 % (11.8-14.3); White Blood Cell 5.4 10^3/uL (4.4-10.8)
== END | disposition home or self-care (01) ==
LOC: CHF HDHVI 11:11
PROVIDERS: ATTEND Internal Medicine Cardiovascular Disease
DX: E55.9 Vitamin D deficiency, unspecified (principal); I10 Essential (primary) hypertension; D64.9 Anemia, unspecified; E11.9 Type 2 diabetes mellitus without complications; I48.91 Unspecified atrial fibrillation; R53.83 Other fatigue; E29.1 Testicular hypofunction; Z95.810 Presence of automatic (implantable) cardiac defibrillator
CPT/HCPCS: 36415; 80053; 82306; 83036; 83735; 85025; 93701; 96372; G0463; J1071; J3420

== ENCOUNTER → 2017-10-03 | Outpatient (CLI) | payer MEDICARE, OTHER ==
[~2017-10-03] MED LIST changes: -CYANOCOBALAMIN (B-12) 1000 MCG/1 ML VIAL IM ONE; -CYANOCOBALAMIN (B-12) 1000 MCG/1 ML VIAL ONE
[2017-10-03 11:44] VITALS: BP 101/52
[2017-10-03 11:50] VITALS: BP 102/53
== END | disposition home or self-care (01) ==
LOC: CHF HDHVI 11:26
PROVIDERS: ATTEND Internal Medicine Cardiovascular Disease
DX: E29.1 Testicular hypofunction (principal)
CPT/HCPCS: 96372; G0463; J1071

== ENCOUNTER → 2017-10-10 | Outpatient (CLI) | payer MEDICARE, OTHER ==
[2017-10-10 11:00] VITALS: BP 96/47
[2017-10-10 11:40] VITALS: BP 87/52
== END | disposition home or self-care (01) ==
LOC: CHF HDHVI 11:17
PROVIDERS: ATTEND Internal Medicine Cardiovascular Disease
DX: E29.1 Testicular hypofunction (principal); E55.9 Vitamin D deficiency, unspecified; I10 Essential (primary) hypertension; E11.9 Type 2 diabetes mellitus without complications; I48.91 Unspecified atrial fibrillation
CPT/HCPCS: 96372; G0463; J1071

== ENCOUNTER → 2017-10-17 | Outpatient (CLI) | payer MEDICARE, OTHER ==
[2017-10-17 11:50] VITALS: BP 102/53
[2017-10-17 12:00] VITALS: BP 101/43
== END | disposition home or self-care (01) ==
LOC: CHF HDHVI 11:50
PROVIDERS: ATTEND Internal Medicine Cardiovascular Disease
DX: E29.1 Testicular hypofunction (principal); I25.10 Atherosclerotic heart disease of native coronary artery without angina pectoris; I10 Essential (primary) hypertension; E11.9 Type 2 diabetes mellitus without complications
CPT/HCPCS: 96372; G0463; J1071

== ENCOUNTER → 2017-10-31 | Outpatient (CLI) | payer MEDICARE, OTHER ==
[~2017-10-31] MED LIST changes: +CYANOCOBALAMIN (B-12) 1000 MCG/1 ML VIAL IM ONE; +CYANOCOBALAMIN (B-12) 1000 MCG/1 ML VIAL ONE
[2017-10-31 13:50] VITALS: BP 91/39
[2017-10-31 14:57] VITALS: BP 91/43
== END | disposition home or self-care (01) ==
LOC: CHF HDHVI 14:00
PROVIDERS: ATTEND Internal Medicine Cardiovascular Disease
DX: E29.1 Testicular hypofunction (principal); I11.0 Hypertensive heart disease with heart failure; I50.23 Acute on chronic systolic (congestive) heart failure; E11.9 Type 2 diabetes mellitus without complications; I48.91 Unspecified atrial fibrillation; I25.10 Atherosclerotic heart disease of native coronary artery without angina pectoris; I25.2 Old myocardial infarction; J45.909 Unspecified asthma, uncomplicated; Z98.61 Coronary angioplasty status; Z95.810 Presence of automatic (implantable) cardiac defibrillator; Z79.01 Long term (current) use of anticoagulants
CPT/HCPCS: 93701; 96372; G0463; J1071; J3420

== ENCOUNTER → 2017-11-14 | Outpatient (CLI) | payer MEDICARE, OTHER ==
[~2017-11-14] MED LIST changes: -CYANOCOBALAMIN (B-12) 1000 MCG/1 ML VIAL IM ONE; -CYANOCOBALAMIN (B-12) 1000 MCG/1 ML VIAL ONE
[2017-11-14 11:30] VITALS: BP 93/47
[2017-11-14 11:41] VITALS: BP 98/49
== END | disposition home or self-care (01) ==
LOC: CHF HDHVI 11:30
PROVIDERS: ATTEND Internal Medicine Cardiovascular Disease
DX: E29.1 Testicular hypofunction (principal); I11.0 Hypertensive heart disease with heart failure; I50.9 Heart failure, unspecified; E11.9 Type 2 diabetes mellitus without complications; I25.10 Atherosclerotic heart disease of native coronary artery without angina pectoris; I48.91 Unspecified atrial fibrillation; Z95.810 Presence of automatic (implantable) cardiac defibrillator
CPT/HCPCS: 96372; G0463; J1071

== ENCOUNTER → 2017-11-28 | Outpatient (CLI) | payer MEDICARE, OTHER ==
[2017-11-28 11:45] VITALS: BP 100/52
[2017-11-28 11:50] VITALS: BP 103/47
[2017-11-28 16:18] LABS: BUN/Creatinine Ratio 22.2; Calcium 8.4 mg/dL (8.5-10.1); Magnesium 2.3 mg/dL (1.6-2.6); Potassium 4.4 mmol/L (3.5-5.1)
[2017-11-28 16:30] LABS: Basophils # (auto) 0 uL; Basophils % (auto) 0.8 % (0.0-2.0); Eosinophils # (auto) 0 uL; Eosinophils % (auto) 0.7 % (0.0-7.0); Hematocrit 33.7 % (41.0-53.0); Hemoglobin 10.9 g/dL (13.5-17.5); Lymphocytes # (auto) 1.3 uL; Lymphocytes % (auto) 22.1 % (10.0-50.0); Mean Corpuscular Hemoglobin 27.7 pg (28.0-32.0); Mean Corpuscular Hgb Conc. 32.2 g/dL (32.0-36.0); Monocytes # (auto) 0.5 uL; Monocytes % (auto) 8.1 % (0.0-12.0); Neutrophils # (auto) 4.1 uL; Neutrophils % (auto) 68.3 % (37.0-80.0); Nucleated Red Blood Cells % 0.4 %; Platelet Count (auto) 165 10^3/uL (140-450); Red Blood Cells 3.92 10^6/uL (4.5-5.90); Red Cell Distribution Width 17.5 % (11.8-14.3)
== END | disposition home or self-care (01) ==
LOC: CHF HDHVI 11:47
PROVIDERS: ATTEND Internal Medicine Cardiovascular Disease
DX: E29.1 Testicular hypofunction (principal); I11.0 Hypertensive heart disease with heart failure; I50.23 Acute on chronic systolic (congestive) heart failure; D64.9 Anemia, unspecified; I25.10 Atherosclerotic heart disease of native coronary artery without angina pectoris; E11.9 Type 2 diabetes mellitus without complications; I48.91 Unspecified atrial fibrillation; I25.2 Old myocardial infarction; J45.909 Unspecified asthma, uncomplicated; Z79.01 Long term (current) use of anticoagulants
CPT/HCPCS: 36415; 80048; 83735; 85025; 96372; G0463; J1071

== ENCOUNTER → 2017-12-12 | Outpatient (CLI) | payer MEDICARE, BC ==
[~2017-12-12] MED LIST changes: +CYANOCOBALAMIN (B-12) 1000 MCG/1 ML VIAL IM ONE; +CYANOCOBALAMIN (B-12) 1000 MCG/1 ML VIAL ONE
[2017-12-12 11:18] VITALS: BP 105/45
[2017-12-12 11:25] VITALS: BP 109/48
== END | disposition home or self-care (01) ==
LOC: CHF HDHVI 10:55
PROVIDERS: ATTEND Internal Medicine Cardiovascular Disease
DX: I11.0 Hypertensive heart disease with heart failure (principal); I50.23 Acute on chronic systolic (congestive) heart failure; R06.02 Shortness of breath; E11.9 Type 2 diabetes mellitus without complications; I25.10 Atherosclerotic heart disease of native coronary artery without angina pectoris; E29.1 Testicular hypofunction; J45.909 Unspecified asthma, uncomplicated; D64.9 Anemia, unspecified; Z79.01 Long term (current) use of anticoagulants; Z98.61 Coronary angioplasty status; Z95.810 Presence of automatic (implantable) cardiac defibrillator
CPT/HCPCS: 93701; 94618; 96372; G0463; J1071; J3420

== ENCOUNTER → 2017-12-26 | Outpatient (CLI) | payer MEDICARE, BC ==
[~2017-12-26] MED LIST changes: -CYANOCOBALAMIN (B-12) 1000 MCG/1 ML VIAL IM ONE; -CYANOCOBALAMIN (B-12) 1000 MCG/1 ML VIAL ONE; -TESTOSTERONE CYPIONATE 200 MG/ML 1ML VIAL IM ONE
[2017-12-26 14:30] VITALS: BP 101/53
[2017-12-26 16:09] LABS: Albumin 3.3 g/dL (3.4-5.0); BUN/Creatinine Ratio 27.6; Calcium 8.5 mg/dL (8.5-10.1); Potassium 4.6 mmol/L (3.5-5.1)
[2017-12-26 16:11] LABS: Bilirubin, Total 0.9 mg/dL (0.2-1.0); Total Protein 6.8 g/dL (6.4-8.2)
[2017-12-26 16:31] LABS: Basophils # (auto) 0.1 uL; Basophils % (auto) 0.8 % (0.0-2.0); Eosinophils # (auto) 0.1 uL; Eosinophils % (auto) 1.9 % (0.0-7.0); Hematocrit 31.2 % (41.0-53.0); Hemoglobin 10.3 g/dL (13.5-17.5); Lymphocytes # (auto) 1.1 uL; Lymphocytes % (auto) 17.3 % (10.0-50.0); Mean Corpuscular Volume 81.9 fL (80.0-100.0); Monocytes # (auto) 0.7 uL; Monocytes % (auto) 10.9 % (0.0-12.0); Neutrophils # (auto) 4.6 uL; Neutrophils % (auto) 69.1 % (37.0-80.0); Nucleated Red Blood Cells % 0.1 %; Platelet Count (auto) 196 10^3/uL (140-450); Red Blood Cells 3.81 10^6/uL (4.5-5.90); Red Cell Distribution Width 18.9 % (11.8-14.3); White Blood Cell 6.6 10^3/uL (4.4-10.8)
== END | disposition home or self-care (01) ==
LOC: CHF HDHVI 14:13
PROVIDERS: ATTEND Internal Medicine Cardiovascular Disease
DX: I11.0 Hypertensive heart disease with heart failure (principal); I50.23 Acute on chronic systolic (congestive) heart failure; I25.10 Atherosclerotic heart disease of native coronary artery without angina pectoris; E11.9 Type 2 diabetes mellitus without complications; D51.9 Vitamin B12 deficiency anemia, unspecified; D64.9 Anemia, unspecified; E29.1 Testicular hypofunction; E55.9 Vitamin D deficiency, unspecified
CPT/HCPCS: 36415; 80053; 82306; 82607; 83880; 84403; 85025; G0463

== ENCOUNTER → 2018-01-22 | Outpatient (CLI) | payer MEDICARE, BC ==
[~2018-01-22] VITALS: Ht 190.5 cm; Wt 94.3 kg
[~2018-01-22] MED LIST changes: +ADENOSINE 79 MG in GIVE UN-DILUTED 0 ML IV ONE; +ADENOSINE 90 MG/30 ML INJ IV ONE; +CHOL1TAB42 PO; +DIGO0.1262 PO; +MAGN400C2 PO; +METO5TAB56 PO; +NITR0.4S29 SL; +OMEGCAP PO; +RIVA10TA PO; +TORS1TAB10 PO; +[UNRECOGNIZED DRUG - CODE] PO
== END | disposition home or self-care (01) ==
LOC: CHF HDHVI 10:19
PROVIDERS: ATTEND Internal Medicine Cardiovascular Disease
DX: I25.5 Ischemic cardiomyopathy (principal); I11.0 Hypertensive heart disease with heart failure; I50.43 Acute on chronic combined systolic (congestive) and diastolic (congestive) heart failure; E78.2 Mixed hyperlipidemia; J96.90 Respiratory failure, unspecified, unspecified whether with hypoxia or hypercapnia; E11.9 Type 2 diabetes mellitus without complications
CPT/HCPCS: 78452; 93005; 96374; 96375; A9500; J0153

== ENCOUNTER → 2018-01-30 | Outpatient (CLI) | payer MEDICARE, BC ==
[~2018-01-30] MED LIST changes: -ADENOSINE 79 MG in GIVE UN-DILUTED 0 ML IV ONE; -ADENOSINE 90 MG/30 ML INJ IV ONE; +CYANOCOBALAMIN (B-12) 1000 MCG/1 ML VIAL IM ONE; +CYANOCOBALAMIN (B-12) 1000 MCG/1 ML VIAL ONE; +TESTOSTERONE CYPIONATE 200 MG/ML 1ML VIAL IM ONE
[2018-01-30 11:35] VITALS: BP 96/51
[2018-01-30 12:35] VITALS: BP 97/53
== END | disposition home or self-care (01) ==
LOC: CHF HDHVI 11:38
PROVIDERS: ATTEND Internal Medicine Cardiovascular Disease
DX: I48.0 Paroxysmal atrial fibrillation (principal); I25.10 Atherosclerotic heart disease of native coronary artery without angina pectoris; D51.9 Vitamin B12 deficiency anemia, unspecified; E29.1 Testicular hypofunction; I11.0 Hypertensive heart disease with heart failure; I50.43 Acute on chronic combined systolic (congestive) and diastolic (congestive) heart failure; E11.9 Type 2 diabetes mellitus without complications; F41.9 Anxiety disorder, unspecified; E55.9 Vitamin D deficiency, unspecified; J45.909 Unspecified asthma, uncomplicated; K21.9 Gastro-esophageal reflux disease without esophagitis; I25.2 Old myocardial infarction; Z79.01 Long term (current) use of anticoagulants; Z95.810 Presence of automatic (implantable) cardiac defibrillator
CPT/HCPCS: 93701; 96372; G0463; J1071; J3420

== ENCOUNTER → 2018-02-05 | Outpatient (CLI) | payer MEDICARE, BC ==
[~2018-02-05] MED LIST changes: -CYANOCOBALAMIN (B-12) 1000 MCG/1 ML VIAL IM ONE; -CYANOCOBALAMIN (B-12) 1000 MCG/1 ML VIAL ONE; +FUROSEMIDE 100 MG/10ML VIAL IV ONE; +FUROSEMIDE 40 MG/4 ML VIAL ONE; +POTASSIUM CHL 20 Meq TABLET PO ONE; -TESTOSTERONE CYPIONATE 200 MG/ML 1ML VIAL IM ONE
[2018-02-05 11:00] VITALS: BP 88/49
[2018-02-05 12:06] LABS: Basophils # (auto) 0 uL; Basophils % (auto) 0.5 % (0.0-2.0); Eosinophils # (auto) 0 uL; Eosinophils % (auto) 0.2 % (0.0-7.0); Hematocrit 29.7 % (41.0-53.0); Hemoglobin 9.6 g/dL (13.5-17.5); Lymphocytes # (auto) 0.6 uL; Lymphocytes % (auto) 7.2 % (10.0-50.0); Mean Corpuscular Hemoglobin 27.3 pg (28.0-32.0); Mean Corpuscular Hgb Conc. 32.4 g/dL (32.0-36.0); Mean Corpuscular Volume 84.3 fL (80.0-100.0); Monocytes # (auto) 0.7 uL; Neutrophils # (auto) 6.8 uL; Neutrophils % (auto) 83.1 % (37.0-80.0); Nucleated Red Blood Cells % 0.2 %; Platelet Count (auto) 144 10^3/uL (140-450); Red Blood Cells 3.52 10^6/uL (4.5-5.90); White Blood Cell 8.1 10^3/uL (4.4-10.8)
[2018-02-05 12:07] LABS: Red Cell Distribution Width 23.2 % (11.8-14.3)
[2018-02-05 12:13] LABS: BUN/Creatinine Ratio 23.2; Calcium 8.8 mg/dL (8.5-10.1); Potassium 4.4 mmol/L (3.5-5.1)
== END | disposition home or self-care (01) ==
LOC: CHF HDHVI 09:58
PROVIDERS: ATTEND Internal Medicine Cardiovascular Disease
DX: I11.0 Hypertensive heart disease with heart failure (principal); I50.43 Acute on chronic combined systolic (congestive) and diastolic (congestive) heart failure; D64.9 Anemia, unspecified; R06.02 Shortness of breath; I25.10 Atherosclerotic heart disease of native coronary artery without angina pectoris; F41.9 Anxiety disorder, unspecified; K21.9 Gastro-esophageal reflux disease without esophagitis; E78.2 Mixed hyperlipidemia; I25.2 Old myocardial infarction; J45.909 Unspecified asthma, uncomplicated; I48.0 Paroxysmal atrial fibrillation; E11.9 Type 2 diabetes mellitus without complications; Z79.01 Long term (current) use of anticoagulants; Z98.61 Coronary angioplasty status; Z95.810 Presence of automatic (implantable) cardiac defibrillator
CPT/HCPCS: 36415; 80048; 83880; 85025; 96374; G0463; J1940

== ENCOUNTER → 2018-02-07 | Outpatient (CLI) | payer MEDICARE, BC ==
[~2018-02-07] MED LIST changes: -FUROSEMIDE 100 MG/10ML VIAL IV ONE; -FUROSEMIDE 40 MG/4 ML VIAL ONE; +IOHEXOL 350 MG/ML 100ML IJ ONE; -POTASSIUM CHL 20 Meq TABLET PO ONE
[2018-02-07 12:00] VITALS: BP 93/49
[2018-02-07 12:45] VITALS: BP 96/51
== END | disposition home or self-care (01) ==
LOC: Rad HDHVI 11:25
PROVIDERS: ATTEND Internal Medicine Cardiovascular Disease
DX: T82.897A Other specified complication of cardiac prosthetic devices, implants and grafts, initial encounter (principal); J98.11 Atelectasis; I25.10 Atherosclerotic heart disease of native coronary artery without angina pectoris
CPT/HCPCS: 71275; 82565; G0463; Q9967

== ENCOUNTER → 2018-02-23 | Outpatient (CLI) | payer MEDICARE, BC ==
[~2018-02-23] MED LIST changes: +FUROSEMIDE 100 MG/10ML VIAL IV ONE; +FUROSEMIDE 40 MG/4 ML VIAL ONE; -IOHEXOL 350 MG/ML 100ML IJ ONE; +POTASSIUM CHL 20 Meq TABLET PO ONE
[2018-02-23 11:05] VITALS: BP 107/54
== END | disposition home or self-care (01) ==
LOC: CHF HDHVI 10:06
PROVIDERS: ATTEND Internal Medicine Cardiovascular Disease
DX: I11.0 Hypertensive heart disease with heart failure (principal); I50.43 Acute on chronic combined systolic (congestive) and diastolic (congestive) heart failure; I27.21 Secondary pulmonary arterial hypertension; D51.9 Vitamin B12 deficiency anemia, unspecified; E11.9 Type 2 diabetes mellitus without complications; I48.0 Paroxysmal atrial fibrillation; I25.10 Atherosclerotic heart disease of native coronary artery without angina pectoris; I25.2 Old myocardial infarction; J45.909 Unspecified asthma, uncomplicated; K21.9 Gastro-esophageal reflux disease without esophagitis; E78.2 Mixed hyperlipidemia; F41.9 Anxiety disorder, unspecified; Z79.01 Long term (current) use of anticoagulants; Z79.899 Other long term (current) drug therapy; Z95.810 Presence of automatic (implantable) cardiac defibrillator; Z98.61 Coronary angioplasty status
CPT/HCPCS: 96374; G0463; J1940

== ENCOUNTER → 2018-02-26 | Outpatient (CLI) | payer MEDICARE, BC ==
[~2018-02-26] MED LIST changes: +CYANOCOBALAMIN (B-12) 1000 MCG/1 ML VIAL IM ONE; +CYANOCOBALAMIN (B-12) 1000 MCG/1 ML VIAL ONE; -FUROSEMIDE 100 MG/10ML VIAL IV ONE; -FUROSEMIDE 40 MG/4 ML VIAL ONE; -POTASSIUM CHL 20 Meq TABLET PO ONE; +TESTOSTERONE CYPIONATE 200 MG/ML 1ML VIAL IM ONE
[2018-02-26 11:30] VITALS: BP 90/41
[2018-02-26 12:25] LABS: Basophils # (auto) 0.1 uL; Basophils % (auto) 1.1 % (0.0-2.0); Eosinophils # (auto) 0.1 uL; Eosinophils % (auto) 1.3 % (0.0-7.0); Hematocrit 28.3 % (41.0-53.0); Hemoglobin 9.2 g/dL (13.5-17.5); Lymphocytes # (auto) 0.9 uL; Lymphocytes % (auto) 14.9 % (10.0-50.0); Mean Corpuscular Hemoglobin 27.2 pg (28.0-32.0); Mean Corpuscular Hgb Conc. 32.3 g/dL (32.0-36.0); Mean Corpuscular Volume 84.2 fL (80.0-100.0); Monocytes # (auto) 0.5 uL; Monocytes % (auto) 8.5 % (0.0-12.0); Neutrophils # (auto) 4.7 uL; Neutrophils % (auto) 74.2 % (37.0-80.0); Nucleated Red Blood Cells % 0.1 %; Platelet Count (auto) 176 10^3/uL (140-450); Red Blood Cells 3.37 10^6/uL (4.5-5.90); White Blood Cell 6.3 10^3/uL (4.4-10.8)
[2018-02-26 12:30] LABS: Red Cell Distribution Width 21.7 % (11.8-14.3)
[2018-02-26 12:48] LABS: BUN/Creatinine Ratio 31.6; Calcium 8.8 mg/dL (8.5-10.1); Potassium 4.4 mmol/L (3.5-5.1)
== END | disposition home or self-care (01) ==
LOC: Rad HDHVI 09:00
PROVIDERS: ATTEND Internal Medicine Cardiovascular Disease
DX: E29.1 Testicular hypofunction (principal); R53.83 Other fatigue; N40.0 Benign prostatic hyperplasia without lower urinary tract symptoms; I25.10 Atherosclerotic heart disease of native coronary artery without angina pectoris; I11.0 Hypertensive heart disease with heart failure; I50.43 Acute on chronic combined systolic (congestive) and diastolic (congestive) heart failure; E11.9 Type 2 diabetes mellitus without complications; D51.9 Vitamin B12 deficiency anemia, unspecified; I25.2 Old myocardial infarction; I48.0 Paroxysmal atrial fibrillation; K21.9 Gastro-esophageal reflux disease without esophagitis; F41.9 Anxiety disorder, unspecified; Z79.01 Long term (current) use of anticoagulants; Z79.899 Other long term (current) drug therapy; Z95.810 Presence of automatic (implantable) cardiac defibrillator; Z98.61 Coronary angioplasty status
CPT/HCPCS: 36415; 71046; 80048; 82565; 83880; 85025; 93701; 96372; G0463; J1071; J3420

== ENCOUNTER → 2018-03-02 | Outpatient (CLI) | payer MEDICARE, BC ==
[~2018-03-02] MED LIST changes: -CYANOCOBALAMIN (B-12) 1000 MCG/1 ML VIAL IM ONE; -CYANOCOBALAMIN (B-12) 1000 MCG/1 ML VIAL ONE; -TESTOSTERONE CYPIONATE 200 MG/ML 1ML VIAL IM ONE
[2018-03-02 08:55] VITALS: BP 86/38
[2018-03-02 09:50] VITALS: BP 84/44
[2018-03-02 10:38] LABS: Magnesium 2.8 mg/dL (1.6-2.6); Potassium 4.5 mmol/L (3.5-5.1)
== END | disposition home or self-care (01) ==
LOC: CHF HDHVI 09:13
PROVIDERS: ATTEND Internal Medicine Cardiovascular Disease
DX: E83.40 Disorders of magnesium metabolism, unspecified (principal); R94.4 Abnormal results of kidney function studies; E87.6 Hypokalemia; I11.0 Hypertensive heart disease with heart failure; I50.9 Heart failure, unspecified; I25.10 Atherosclerotic heart disease of native coronary artery without angina pectoris; Z79.899 Other long term (current) drug therapy
CPT/HCPCS: 36415; 82565; 83735; 84132; 84520; G0463

== ENCOUNTER → 2018-03-08 | Outpatient (CLI) | payer MEDICARE, BC ==
[~2018-03-08] MED LIST changes: +ADENOSINE 90 MG/30 ML INJ IV ONE; +CYANOCOBALAMIN (B-12) 1000 MCG/1 ML VIAL IM ONE; +CYANOCOBALAMIN (B-12) 1000 MCG/1 ML VIAL ONE; +FURO20TA3 PO; +SPIR25TA8 PO; -SPIR25TA89 PO; -VEN75XRT PO; +VENL75CA3 PO
[2018-03-08 13:30] VITALS: BP 90/47
[2018-03-08 14:50] VITALS: BP 96/52
[2018-03-08 16:08] LABS: Basophils # (auto) 0.1 uL; Eosinophils # (auto) 0 uL; Eosinophils % (auto) 0.4 % (0.0-7.0); Hematocrit 28.8 % (41.0-53.0); Hemoglobin 9.3 g/dL (13.5-17.5); Lymphocytes # (auto) 0.9 uL; Lymphocytes % (auto) 14.4 % (10.0-50.0); Mean Corpuscular Hemoglobin 27.3 pg (28.0-32.0); Mean Corpuscular Hgb Conc. 32.5 g/dL (32.0-36.0); Mean Corpuscular Volume 84.1 fL (80.0-100.0); Monocytes # (auto) 0.7 uL; Monocytes % (auto) 10.6 % (0.0-12.0); Neutrophils # (auto) 4.8 uL; Neutrophils % (auto) 73.6 % (37.0-80.0); Nucleated Red Blood Cells % 0.1 %; Platelet Count (auto) 184 10^3/uL (140-450); Red Blood Cells 3.42 10^6/uL (4.5-5.90); White Blood Cell 6.5 10^3/uL (4.4-10.8)
[2018-03-08 16:13] LABS: INR 1.23 (0.9-1.15); Partial Thromboplastin Time 32.7 sec (23.78-33.04)
[2018-03-08 16:31] LABS: BUN/Creatinine Ratio 27.1; Calcium 8.4 mg/dL (8.5-10.1); Potassium 4.6 mmol/L (3.5-5.1)
[2018-03-08 16:43] LABS: Red Cell Distribution Width 21.2 % (11.8-14.3)
== END | disposition home or self-care (01) ==
LOC: CHF HDHVI 13:57
PROVIDERS: ATTEND Internal Medicine Cardiovascular Disease
DX: Z01.812 Encounter for preprocedural laboratory examination (principal); I48.91 Unspecified atrial fibrillation; R79.1 Abnormal coagulation profile; D51.9 Vitamin B12 deficiency anemia, unspecified; I11.0 Hypertensive heart disease with heart failure; I50.23 Acute on chronic systolic (congestive) heart failure; I25.10 Atherosclerotic heart disease of native coronary artery without angina pectoris; E78.5 Hyperlipidemia, unspecified; F41.9 Anxiety disorder, unspecified; K21.9 Gastro-esophageal reflux disease without esophagitis; J45.909 Unspecified asthma, uncomplicated; Z79.899 Other long term (current) drug therapy; Z87.891 Personal history of nicotine dependence
CPT/HCPCS: 36415; 80048; 80162; 83880; 85025; 85610; 85730; 96372; G0463; J3420; J0153

== ENCOUNTER 2018-03-13 12:07 | Day surgery (SDC) | payer MEDICARE, OTHER ==
[~2018-03-13] VITALS: Ht 190.5 cm; Wt 92.1 kg
[~2018-03-13 12:07] MED LIST changes: -ADENOSINE 90 MG/30 ML INJ IV ONE; -CYANOCOBALAMIN (B-12) 1000 MCG/1 ML VIAL IM ONE; -CYANOCOBALAMIN (B-12) 1000 MCG/1 ML VIAL ONE; -FURO20TA3 PO
[2018-03-13] MEDS ORDERED: LIDOCAINE 2% (LOCAL ANESTH.) PF 5ml SDV ONE (13:48)
[2018-03-13] MEDS ORDERED: IODIXANOL 320MG/ML 100ML BTL IV ONE ×2 (13:48→13:52)
[2018-03-13] MEDS ORDERED: fentaNYL CITRATE 100 MCG/2 ML VL ONE (13:51)
[2018-03-13] MEDS ORDERED: ANGIOMAX 250 MG VIAL IV ONE (13:51)
[2018-03-13] MEDS ORDERED: SODIUM CHL 0.9% 0 ML ONE (13:52)
[2018-03-13] MEDS ORDERED: ATROPINE SULF 1 MG/10ml SYR ONE (13:52)
[2018-03-13] MEDS ORDERED: MIDAZOLAM HCL 1MG/1ML-2 ML VIAL ONE (13:52)
[2018-03-13] MEDS ORDERED: EPINEPHrine HCL 1 MG/10 ML SYRG ONE (13:52)
[2018-03-13] MEDS ORDERED: VERAPAMIL 2.5MG/ML INJ 2ML VIAL IV ONE (14:09)
[2018-03-13] MEDS ORDERED: EPTIFIBATIDE INJ (2MG/ML) 10ML VIAL IV ONE (14:09)
== END 2018-03-13 16:50 | disposition home or self-care (01) ==
LOC: CATH 12:07
PROVIDERS: ATTEND Internal Medicine Cardiovascular Disease
DX: I25.10 Atherosclerotic heart disease of native coronary artery without angina pectoris (principal); I25.5 Ischemic cardiomyopathy; I48.91 Unspecified atrial fibrillation; N28.9 Disorder of kidney and ureter, unspecified; I50.9 Heart failure, unspecified; E78.5 Hyperlipidemia, unspecified; I25.2 Old myocardial infarction; Z95.5 Presence of coronary angioplasty implant and graft; Z87.891 Personal history of nicotine dependence; Z95.1 Presence of aortocoronary bypass graft; Z88.8 Allergy status to other drugs, medicaments and biological substances; Z79.82 Long term (current) use of aspirin; Z79.899 Other long term (current) drug therapy
CPT/HCPCS: 93459; 99152; A6257; C1769; C1887; C1894; J1644; J2001; J2250; J3010; J7030; Q9967; 93458

== ENCOUNTER → 2018-03-22 | Outpatient (CLI) | payer MEDICARE, BC ==
[~2018-03-22] MED LIST changes: -CLOP75TA28 PO; +CYANOCOBALAMIN (B-12) 1000 MCG/1 ML VIAL IM ONE; +CYANOCOBALAMIN (B-12) 1000 MCG/1 ML VIAL ONE; +FURO20TA3 PO; -FURO40TA PO
[2018-03-22 12:30] VITALS: BP 99/43
[2018-03-22 16:05] LABS: Basophils # (auto) 0.1 uL; Lymphocytes # (auto) 0.6 uL; Monocytes # (auto) 0.4 uL
[2018-03-22 16:07] LABS: Eosinophils # (auto) 0 uL; Eosinophils % (auto) 0.7 % (0.0-7.0); Lymphocytes % (auto) 11.4 % (10.0-50.0); Mean Corpuscular Hemoglobin 27.2 pg (28.0-32.0); Mean Corpuscular Hgb Conc. 32.1 g/dL (32.0-36.0); Mean Corpuscular Volume 84.7 fL (80.0-100.0); Monocytes % (auto) 7.7 % (0.0-12.0); Neutrophils # (auto) 4.3 uL; Neutrophils % (auto) 79.2 % (37.0-80.0); Nucleated Red Blood Cells % 0.5 %; Red Blood Cells 2.95 10^6/uL (4.5-5.90); White Blood Cell 5.4 10^3/uL (4.4-10.8)
[2018-03-22 16:08] LABS: Red Cell Distribution Width 20.2 % (11.8-14.3)
[2018-03-22 16:09] LABS: Platelet Count (auto) 176 10^3/uL (140-450)
[2018-03-22 16:20] LABS: Potassium 4.9 mmol/L (3.5-5.1)
[2018-03-22 16:29] LABS: INR 1.41 (0.9-1.15); Prothrombin Time 14.8 sec (9.27-12.13)
== END | disposition home or self-care (01) ==
LOC: CHF HDHVI 11:33
PROVIDERS: ATTEND Internal Medicine Cardiovascular Disease
DX: D51.9 Vitamin B12 deficiency anemia, unspecified (principal); R94.4 Abnormal results of kidney function studies; E87.6 Hypokalemia; R79.1 Abnormal coagulation profile; I25.10 Atherosclerotic heart disease of native coronary artery without angina pectoris; E78.5 Hyperlipidemia, unspecified; I11.0 Hypertensive heart disease with heart failure; I50.43 Acute on chronic combined systolic (congestive) and diastolic (congestive) heart failure; E11.9 Type 2 diabetes mellitus without complications; I48.0 Paroxysmal atrial fibrillation; F41.9 Anxiety disorder, unspecified; K21.9 Gastro-esophageal reflux disease without esophagitis; J45.909 Unspecified asthma, uncomplicated; Z87.891 Personal history of nicotine dependence; Z95.1 Presence of aortocoronary bypass graft
CPT/HCPCS: 36415; 82565; 84132; 84520; 85025; 85610; 85730; 96372; G0463; J3420

== ENCOUNTER 2018-03-26 06:54 | Day surgery (SDC) | payer MEDICARE, OTHER ==
[~2018-03-26] VITALS: Ht 190.5 cm; Wt 92.5 kg
[~2018-03-26 06:54] MED LIST changes: -CYANOCOBALAMIN (B-12) 1000 MCG/1 ML VIAL IM ONE; -CYANOCOBALAMIN (B-12) 1000 MCG/1 ML VIAL ONE; -FURO20TA3 PO
[2018-03-26] MEDS ORDERED: FURO20TA3 PO (07:34)
[2018-03-26 08:28] VITALS: BP 93/60
[2018-03-26 08:42] VITALS: BP 97/54
[2018-03-26 08:58] VITALS: BP 98/53
[2018-03-26 09:40] VITALS: BP 100/53
[2018-03-26 10:40] VITALS: BP 98/54
[2018-03-26 11:54] VITALS: BP 98/50
== END 2018-03-26 12:15 | disposition home or self-care (01) ==
LOC: CATH 06:54
PROVIDERS: ATTEND Internal Medicine Cardiovascular Disease
DX: D64.9 Anemia, unspecified (principal); I42.9 Cardiomyopathy, unspecified; E11.9 Type 2 diabetes mellitus without complications; E78.5 Hyperlipidemia, unspecified; I25.10 Atherosclerotic heart disease of native coronary artery without angina pectoris; I11.0 Hypertensive heart disease with heart failure; I50.9 Heart failure, unspecified; Z95.1 Presence of aortocoronary bypass graft; Z95.5 Presence of coronary angioplasty implant and graft
CPT/HCPCS: 36430; 86850; 86900; 86901; 86920; J7040; P9016

== ENCOUNTER → 2018-04-03 | Outpatient (CLI) | payer MEDICARE, BC ==
[~2018-04-03] MED LIST changes: +FURO20TA3 PO; -TORS1TAB10 PO
[2018-04-03 12:45] VITALS: BP 91/49
[2018-04-03 13:30] VITALS: BP 100/50
[2018-04-03 16:18] LABS: Eosinophils # (auto) 0.1 uL; Hemoglobin 8.7 g/dL (13.5-17.5); Lymphocytes # (auto) 0.7 uL; Monocytes # (auto) 0.5 uL; Red Cell Distribution Width 19.2 % (11.8-14.3); White Blood Cell 5.4 10^3/uL (4.4-10.8)
[2018-04-03 16:22] LABS: Basophils # (auto) 0 uL; Basophils % (auto) 0.9 % (0.0-2.0); Eosinophils % (auto) 1.8 % (0.0-7.0); Hematocrit 27.1 % (41.0-53.0); Lymphocytes % (auto) 13.2 % (10.0-50.0); Mean Corpuscular Hemoglobin 26.6 pg (28.0-32.0); Mean Corpuscular Hgb Conc. 32.1 g/dL (32.0-36.0); Mean Corpuscular Volume 82.9 fL (80.0-100.0); Neutrophils % (auto) 74.1 % (37.0-80.0); Nucleated Red Blood Cells % 0.2 %; Platelet Count (auto) 185 10^3/uL (140-450); Red Blood Cells 3.26 10^6/uL (4.5-5.90)
[2018-04-03 16:30] LABS: Albumin 3.3 g/dL (3.4-5.0); BUN/Creatinine Ratio 28.8; Calcium 9.1 mg/dL (8.5-10.1); Magnesium 2.4 mg/dL (1.6-2.6); Potassium 4.5 mmol/L (3.5-5.1); Total Protein 6.7 g/dL (6.4-8.2)
== END | disposition home or self-care (01) ==
LOC: CHF HDHVI 12:52
PROVIDERS: ATTEND Internal Medicine Cardiovascular Disease
DX: E83.40 Disorders of magnesium metabolism, unspecified (principal); D64.9 Anemia, unspecified; J44.9 Chronic obstructive pulmonary disease, unspecified; I11.0 Hypertensive heart disease with heart failure; I50.9 Heart failure, unspecified
CPT/HCPCS: 36415; 80053; 83735; 85025; G0463

== ENCOUNTER → 2018-04-09 | Outpatient (CLI) | payer MEDICARE, BC ==
[2018-04-09 11:20] VITALS: BP 101/55
== END | disposition home or self-care (01) ==
LOC: CHF HDHVI 09:36
PROVIDERS: ATTEND Internal Medicine Cardiovascular Disease
DX: D64.9 Anemia, unspecified (principal); I11.0 Hypertensive heart disease with heart failure; I50.9 Heart failure, unspecified; I25.10 Atherosclerotic heart disease of native coronary artery without angina pectoris
CPT/HCPCS: G0463

== ENCOUNTER → 2018-04-16 | Outpatient (CLI) | payer MEDICARE, BC ==
[2018-04-16 11:45] VITALS: BP 97/44
[2018-04-16 13:00] VITALS: BP 87/50
[2018-04-16 16:19] LABS: Basophils # (auto) 0.1 uL; Basophils % (auto) 0.9 % (0.0-2.0); Eosinophils # (auto) 0.1 uL; Eosinophils % (auto) 1.1 % (0.0-7.0); Hematocrit 27.8 % (41.0-53.0); Hemoglobin 8.9 g/dL (13.5-17.5); Lymphocytes # (auto) 0.7 uL; Mean Corpuscular Hemoglobin 26.5 pg (28.0-32.0); Mean Corpuscular Volume 82.7 fL (80.0-100.0); Monocytes # (auto) 0.5 uL; Monocytes % (auto) 8.3 % (0.0-12.0); Neutrophils # (auto) 4.8 uL; Neutrophils % (auto) 77.7 % (37.0-80.0); Nucleated Red Blood Cells % 0.1 %; Platelet Count (auto) 193 10^3/uL (140-450); Red Blood Cells 3.36 10^6/uL (4.5-5.90); Red Cell Distribution Width 19.4 % (11.8-14.3); White Blood Cell 6.2 10^3/uL (4.4-10.8)
[2018-04-16 16:35] LABS: BUN/Creatinine Ratio 25.2; Magnesium 2.5 mg/dL (1.6-2.6); Potassium 4.1 mmol/L (3.5-5.1)
== END | disposition home or self-care (01) ==
LOC: CHF HDHVI 11:49
PROVIDERS: ATTEND Internal Medicine Cardiovascular Disease
DX: I11.0 Hypertensive heart disease with heart failure (principal); I50.9 Heart failure, unspecified; E83.40 Disorders of magnesium metabolism, unspecified; D64.9 Anemia, unspecified; J44.9 Chronic obstructive pulmonary disease, unspecified; R06.00 Dyspnea, unspecified; R53.83 Other fatigue
CPT/HCPCS: 36415; 80048; 83735; 83880; 85025; 93701; G0463

== ENCOUNTER → 2018-04-23 | Outpatient (CLI) | payer MEDICARE, BC ==
[~2018-04-23] VITALS: Ht 165.1 cm; Wt 88.1 kg
[~2018-04-23] MED LIST changes: +CYANOCOBALAMIN (B-12) 1000 MCG/1 ML VIAL IM ONE; +CYANOCOBALAMIN (B-12) 1000 MCG/1 ML VIAL ONE; +TESTOSTERONE CYPIONATE 200 MG/ML 1ML VIAL IM ONE
[2018-04-23 11:09] LABS: Basophils # (auto) 0.1 uL; Eosinophils # (auto) 0 uL; Hemoglobin 8.6 g/dL (13.5-17.5); Lymphocytes % (auto) 12.5 % (10.0-50.0); Monocytes # (auto) 0.7 uL; Neutrophils # (auto) 5.2 uL; White Blood Cell 6.8 10^3/uL (4.4-10.8)
[2018-04-23 11:13] LABS: Potassium 4.1 mmol/L (3.5-5.1)
[2018-04-23 11:15] LABS: Basophils % (auto) 1.2 % (0.0-2.0); Eosinophils % (auto) 0.3 % (0.0-7.0); Hematocrit 27.1 % (41.0-53.0); Lymphocytes # (auto) 0.9 uL; Mean Corpuscular Hemoglobin 26.1 pg (28.0-32.0); Mean Corpuscular Hgb Conc. 31.9 g/dL (32.0-36.0); Mean Corpuscular Volume 81.7 fL (80.0-100.0); Monocytes % (auto) 9.5 % (0.0-12.0); Neutrophils % (auto) 76.5 % (37.0-80.0); Nucleated Red Blood Cells % 0.2 %; Platelet Count (auto) 193 10^3/uL (140-450); Red Blood Cells 3.31 10^6/uL (4.5-5.90); Red Cell Distribution Width 19.2 % (11.8-14.3)
[2018-04-23 12:35] VITALS: BP 93/45
[2018-04-23 12:56] LABS: Urine Bacteria NONE SEEN /hpf (None Seen); Urine Blood Negative /uL (Negative); Urine Hyaline Cast FEW /lpf (0 - 2); Urine Specific Gravity 1.009 (1.001-1.035); Urine WBC <1 /hpf (0 - 3)
== END | disposition home or self-care (01) ==
LOC: CHF HDHVI 10:05
PROVIDERS: ATTEND Internal Medicine Cardiovascular Disease
DX: I11.0 Hypertensive heart disease with heart failure (principal); I50.43 Acute on chronic combined systolic (congestive) and diastolic (congestive) heart failure; D51.3 Other dietary vitamin B12 deficiency anemia; N39.0 Urinary tract infection, site not specified; E29.1 Testicular hypofunction; I48.0 Paroxysmal atrial fibrillation; E87.6 Hypokalemia; I25.5 Ischemic cardiomyopathy; I25.10 Atherosclerotic heart disease of native coronary artery without angina pectoris; R53.1 Weakness; J44.9 Chronic obstructive pulmonary disease, unspecified; E78.5 Hyperlipidemia, unspecified; E83.40 Disorders of magnesium metabolism, unspecified; K21.9 Gastro-esophageal reflux disease without esophagitis; E11.9 Type 2 diabetes mellitus without complications; F41.9 Anxiety disorder, unspecified; I25.2 Old myocardial infarction; R94.4 Abnormal results of kidney function studies; R79.1 Abnormal coagulation profile; Z79.899 Other long term (current) drug therapy; Z87.891 Personal history of nicotine dependence; Z95.1 Presence of aortocoronary bypass graft; Z95.5 Presence of coronary angioplasty implant and graft
CPT/HCPCS: 36415; 81001; 82565; 83880; 84132; 84520; 85025; 87086; 96372; G0463; J1071; J3420

== ENCOUNTER → 2018-05-04 | Outpatient (CLI) | payer MEDICARE, BC ==
[~2018-05-04] MED LIST changes: -CYANOCOBALAMIN (B-12) 1000 MCG/1 ML VIAL IM ONE; -CYANOCOBALAMIN (B-12) 1000 MCG/1 ML VIAL ONE; -TESTOSTERONE CYPIONATE 200 MG/ML 1ML VIAL IM ONE
[2018-05-04 09:35] VITALS: BP 99/50
== END | disposition home or self-care (01) ==
LOC: CHF HDHVI 09:52
PROVIDERS: ATTEND Internal Medicine Cardiovascular Disease
DX: J44.9 Chronic obstructive pulmonary disease, unspecified (principal); D64.9 Anemia, unspecified; R53.83 Other fatigue
CPT/HCPCS: G0463

== ENCOUNTER → 2018-05-21 | Outpatient (CLI) | payer MEDICARE, BC ==
[~2018-05-21] MED LIST changes: +CYANOCOBALAMIN (B-12) 1000 MCG/1 ML VIAL IM ONE; +CYANOCOBALAMIN (B-12) 1000 MCG/1 ML VIAL ONE; -MULT-928 PO; -OMEGCAP PO; -RANI300T3 PO; -SACU1TAB PO; -[UNRECOGNIZED DRUG - CODE] PO
[2018-05-21 11:46] LABS: Albumin 3.2 g/dL (3.4-5.0); BUN/Creatinine Ratio 31.1; Calcium 8.8 mg/dL (8.5-10.1); Magnesium 2.5 mg/dL (1.6-2.6); Potassium 4.6 mmol/L (3.5-5.1)
[2018-05-21 11:49] LABS: Bilirubin, Total 1.6 mg/dL (0.2-1.0); Total Protein 6.6 g/dL (6.4-8.2)
[2018-05-21 12:07] LABS: Basophils # (auto) 0.1 uL; Hemoglobin 10.4 g/dL (13.5-17.5); Monocytes # (auto) 0.8 uL
[2018-05-21 12:10] LABS: Basophils % (auto) 0.7 % (0.0-2.0); Eosinophils # (auto) 0.1 uL; Eosinophils % (auto) 0.6 % (0.0-7.0); Lymphocytes # (auto) 0.7 uL; Lymphocytes % (auto) 8.8 % (10.0-50.0); Mean Corpuscular Hemoglobin 25.7 pg (28.0-32.0); Mean Corpuscular Hgb Conc. 30.6 g/dL (32.0-36.0); Neutrophils # (auto) 6.5 uL; Neutrophils % (auto) 79.9 % (37.0-80.0); Platelet Count (auto) 160 10^3/uL (140-450); Red Blood Cells 4.05 10^6/uL (4.5-5.90); White Blood Cell 8.2 10^3/uL (4.4-10.8)
[2018-05-21 12:13] LABS: Red Cell Distribution Width 20.1 % (11.8-14.3)
[2018-05-21 13:55] VITALS: BP 98/51
== END | disposition home or self-care (01) ==
LOC: CHF HDHVI 10:12
PROVIDERS: ATTEND Internal Medicine Cardiovascular Disease
DX: D64.9 Anemia, unspecified (principal); I42.9 Cardiomyopathy, unspecified; I70.0 Atherosclerosis of aorta; J90 Pleural effusion, not elsewhere classified; I25.10 Atherosclerotic heart disease of native coronary artery without angina pectoris; I11.0 Hypertensive heart disease with heart failure; I50.43 Acute on chronic combined systolic (congestive) and diastolic (congestive) heart failure; E11.9 Type 2 diabetes mellitus without complications; I48.2 Chronic atrial fibrillation; I48.0 Paroxysmal atrial fibrillation; I25.5 Ischemic cardiomyopathy; J44.9 Chronic obstructive pulmonary disease, unspecified; I25.2 Old myocardial infarction; I08.3 Combined rheumatic disorders of mitral, aortic and tricuspid valves; K21.9 Gastro-esophageal reflux disease without esophagitis; E83.40 Disorders of magnesium metabolism, unspecified; E78.5 Hyperlipidemia, unspecified; E78.2 Mixed hyperlipidemia; M16.12 Unilateral primary osteoarthritis, left hip; Z79.82 Long term (current) use of aspirin; Z79.01 Long term (current) use of anticoagulants; Z79.899 Other long term (current) drug therapy; Z95.810 Presence of automatic (implantable) cardiac defibrillator; Z95.1 Presence of aortocoronary bypass graft
CPT/HCPCS: 36415; 71046; 80053; 83735; 85025; 96372; G0463; J3420